=== PATIENT | male | born 1985 | race Caucasian/White ===

== ENCOUNTER 2022-05-02 10:20 | Emergency (ER) | payer OTHER ==
[~2022-05-02] VITALS: Ht 167.6 cm; Wt 70.3 kg
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
--- NOTE | 2022-05-02 10:35 | NUR ---
ESTABLISHED IV LINE LEFT AC 18 G ,
--- NOTE | 2022-05-02 10:45 | NUR ---
BLOOD SAMPLE OBTAINED
--- NOTE | 2022-05-02 10:45 | NUR ---
ON 3L NC, O2SAT AT 98
[2022-05-02 11:00] LABS: EOSINOPHILS % (AUTO) 0.2 % (0.0-6.0); HEMATOCRIT 42 % (39-51); HEMOGLOBIN 13.9 g/dL (13.5-17.5); LYMPHOCYTES # (AUTO) 0.4 K/uL (0.8-4.8); MEAN CORPUSCULAR HGB CONC 33 g/dl (31.0-36.0); MEAN CORPUSCULAR VOLUME 84 fL (80-96); MONOCYTES # (AUTO) 0.2 K/uL (0.1-1.30); MONOCYTES % (AUTO) 1.6 % (2.0-12.0); NEUTROPHILS # (AUTO) 13.6 K/uL (1.8-8.9); NEUTROPHILS % (AUTO) 95.2 % (43.0-81.0); PLATELET COUNT (AUTO) 262 K/uL (150-450); RED BLOOD CELL COUNT(AUTO) 4.97 MIL/uL (4.5-6.0); WHITE BLOOD COUNT (AUTO) 14.3 K/uL (4.3-11.0)
[2022-05-02 11:05] LABS: CALCIUM, SERUM 9.6 mg/dL (8.5-10.1); CARBON DIOXIDE 25 mmol/L (21-32); CHLORIDE 102 mmol/L (98-107); CREATININE 1.3 mg/dL (0.6-1.3); GLUCOSE 109 mg/dL (74-106); POTASSIUM 4.4 mmol/L (3.5-5.1); SODIUM SERUM 137 mmol/L (136-145); UREA NITROGEN, BLOOD 21 mg/dL (7-18)
[2022-05-02 11:08] LABS: ALANINE AMINOTRANSFERASE 27 U/L (12-78); ALBUMIN 3.7 g/dL (3.4-5.0); ALCOHOL, BLOOD < 3 mg/dL (0-0); ALKALINE PHOSPHATASE 75 U/L (46-116); ASPARTATE AMINOTRANSFERASE 20 U/L (15-37); BILIRUBIN,DIRECT 0.3 mg/dL (0.0-0.2); TOTAL PROTEIN, SERUM 7.6 g/dL (6.4-8.2)
--- NOTE | 2022-05-02 11:10 | NUR ---
PATIENT DONT WANT TO BE OBSERVE IN THE EMERGENCY DEPT. AND WISH TO GO HOME. VITAL SIGNS ARE STABLE. ABLE TO AMBULATE AND NO SIGNS OF ANY DISTRESS. MD MADE AWARE.
[2022-05-02 11:21] LABS: ACETAMINOPHEN < 10 ug/ml (10-30)
--- NOTE | 2022-05-02 11:25 | NUR ---
IV removed. Catheter intact and site benign. Pressure and 4x4 applied to site. No bleeding noted.
--- NOTE | 2022-05-02 11:25 | NUR ---
Patient discharged to home in stable condition. Written and verbal after care instructions given. Patient verbalizes understanding of instruction.
[2022-05-02 11:30] VITALS: BP 141/64
[2022-05-03] MEDS ORDERED: FINA1TAB11 PO (15:00)
[2022-05-03] MEDS ORDERED: EMTR1TAB17 PO (15:00)
== END 2022-05-02 11:31 | disposition home or self-care (01) ==
LOC: EDBD → ER 10:26
DX: F15.10 Other stimulant abuse, uncomplicated (principal); F17.200 Nicotine dependence, unspecified, uncomplicated; Z60.2 Problems related to living alone; Z20.822 Contact with and (suspected) exposure to COVID-19
CPT/HCPCS: 99283; 85025; 80048; 87040 ×2; 83605; 80076; 36415; 87426; 80143; 80320; C9803; G0480

== ENCOUNTER 2022-05-03 03:03 | Inpatient (IN) | payer OTHER ==
[~2022-05-03] VITALS: Ht 165.1 cm; Wt 57.2 kg
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
[2022-05-03] MEDS ORDERED: IV NS 0.9% 1,000 ML IV ONE (04:30)
[2022-05-03] MEDS ORDERED: ONDANSETRON HCL/PF 4 MG/2 ML VIAL ONE (04:47)
[2022-05-03] MEDS ORDERED: NALOXONE PREFILLED SYRINGE 2 MG/2 ML SYRINGE ONE ×3 (04:47→08:10)
--- NOTE | 2022-05-03 04:55 | NUR ---
OFFERED PT URINE CUP; AWAITING FOR URINE SAMPLE. WILL F/U
--- NOTE | 2022-05-03 04:55 | NUR ---
LAC #18G S/L BLOOD COLLECTED AND SENT TO LAB.
[2022-05-03] MEDS ORDERED: NALOXONE HCL 0.4 MG/ML AMPUL IV ONE ×5 (05:00→12:30)
[2022-05-03] MEDS ORDERED: ONDANSETRON HCL/PF 4 MG/2 ML VIAL IV ONE (05:00)
--- NOTE | 2022-05-03 05:35 | NUR ---
PT FREQUENTLY REFUSING TO PROVIDE URINE SAMPLE AND TO GET CATHETERIZED.
[2022-05-03 06:02] LABS: CALCIUM, SERUM 8.9 mg/dL (8.5-10.1); CARBON DIOXIDE 27 mmol/L (21-32); CHLORIDE 95 mmol/L (98-107); CREATININE 1.7 mg/dL (0.6-1.3); GLUCOSE 114 mg/dL (74-106); POTASSIUM 4.5 mmol/L (3.5-5.1); SODIUM SERUM 133 mmol/L (136-145); UREA NITROGEN, BLOOD 32 mg/dL (7-18)
[2022-05-03 06:06] LABS: HEMATOCRIT 42 % (39-51); HEMOGLOBIN 14.2 g/dL (13.5-17.5); LYMPHOCYTES # (AUTO) 0.8 K/uL (0.8-4.8); LYMPHOCYTES % (AUTO) 3.9 % (20.0-44.0); MEAN CORPUSCULAR HGB CONC 34 g/dl (31.0-36.0); MEAN CORPUSCULAR VOLUME 85 fL (80-96); MONOCYTES # (AUTO) 0.4 K/uL (0.1-1.30); MONOCYTES % (AUTO) 1.7 % (2.0-12.0); NEUTROPHILS # (AUTO) 20.2 K/uL (1.8-8.9); NEUTROPHILS % (AUTO) 94.4 % (43.0-81.0); PLATELET COUNT (AUTO) 241 K/uL (150-450); WHITE BLOOD COUNT (AUTO) 21.4 K/uL (4.3-11.0)
[2022-05-03 06:07] LABS: ALANINE AMINOTRANSFERASE 33 U/L (12-78); ALBUMIN 3.3 g/dL (3.4-5.0); ALCOHOL, BLOOD < 3 mg/dL (0-0); ALKALINE PHOSPHATASE 58 U/L (46-116); ASPARTATE AMINOTRANSFERASE 56 U/L (15-37); BILIRUBIN,DIRECT 0.4 mg/dL (0.0-0.2); BILIRUBIN,TOTAL 1.8 mg/dL (0.2-1.0); TOTAL PROTEIN, SERUM 7.5 g/dL (6.4-8.2)
--- NOTE | 2022-05-03 06:28 | NUR ---
LACTIC ACID 3.3; DR LAW DANIELLE AWARE
[2022-05-03] MEDS ORDERED: VANCOMYCIN 1 GM VIAL ONE (06:38)
--- NOTE | 2022-05-03 06:50 | NUR ---
COVID ANTIGEN COLLECTED AND SENT TO LAB
--- NOTE | 2022-05-03 06:52 | NUR ---
CALLED PHARMACY FOR CEPHIPINE
[2022-05-03] MEDS ORDERED: VANCOMYCIN 1 GM in IV D5W 250 ML IV ONE (07:00)
[2022-05-03] MEDS ORDERED: IV NS 0.9% 1,000 ML BAG IV ONE (07:00)
[2022-05-03] MEDS ORDERED: CEFEPIME 1 GM in IV D5W 50 ML IV ONE (07:00)
--- NOTE | 2022-05-03 07:28 | NUR ---
RECEIVED CALL FROM MATT AT [facility], REQUESTING CLINICALS TO BE FAXED TO [phone]
--- NOTE | 2022-05-03 08:14 | NUR ---
quality assurance lab technician at bedside, patient cleared for CT per
[2022-05-03] MEDS ORDERED: IV NS 0.9% 250 ML IV ONE (08:22)
[2022-05-03] MEDS ORDERED: IOHEXOL-300 100 ML VIAL IV ONE (08:22)
--- NOTE | 2022-05-03 08:37 | NUR ---
FAXED UPDATED CLINICALS TO MATT AT [facility] [phone]
--- NOTE | 2022-05-03 08:42 | NUR ---
ROOM 120-2
--- NOTE | 2022-05-03 08:47 | NUR ---
REPORT GIVEN TO HELDER GEIGER
--- NOTE | 2022-05-03 08:57 | NUR ---
HOSPITALIST SPEAKING WITH DR. MONTES.
--- NOTE | 2022-05-03 10:51 | NUR ---
PT TRANSFERRED TO TELE FLOOR WITH ACLS PROTOCOLS IN PLACE
[2022-05-03] MEDS ORDERED: MAG HYDROX/AL HYDROX/SIMETH 30 ML UDC PO PRN (11:00)
[2022-05-03] MEDS ORDERED: MAGNESIUM HYDROXIDE 30 ML UDC PO PRN (11:00)
[2022-05-03] MEDS ORDERED: LORAZEPAM INJ 2 MG/ML VIAL IV PRN (11:00)
[2022-05-03] MEDS ORDERED: TEMAZEPAM 15 MG CAPSULE PO PRN (11:00)
[2022-05-03] MEDS ORDERED: Z GUARD REMEDY 4 OZ OINT TP PRN (11:00)
[2022-05-03] MEDS: PANTOPRAZOLE 40 MG TABLET.DR PO SCH (11:23)
[2022-05-03] MEDS: AZITHROMYCIN 250 MG TABLET PO SCH (11:24)
[2022-05-03] MEDS: IV NS 0.9% 1,000 ML IV PRN ×2 (11:26→22:46)
--- NOTE | 2022-05-03 11:30 | NUR ---
FOLDED CLOTH TAPER NOTES Receuived pt from ER AOx3. No complaints of pain or discomfort at this time. Pt is on 2L NC and tolerating it well. IV access on LAC 18G running IVF NS @100cc/hr. HOB elevated to 30-45 degrees. Siderails up at all times x2. Call light within reach. Will continue to monitor.
--- NOTE | 2022-05-03 11:45 | NUR ---
EDUCATION DIRECTOR NOTES Pt temperature 101.8 degrees Fahrenheit. Offered cooling measures but pt refused. Pt stated he just needs to cool off by himself.
[2022-05-03] MEDS: CEFTRIAXONE 2 G in IV D5W 100 ML IV SCH (11:48)
[2022-05-03 11:56] VITALS: BP 152/66
--- NOTE | 2022-05-03 12:30 | NUR ---
PRODUCT SUPPORT REP NOTES Pt is asleep in bed and arousable. Unable to keep a conversation. Dr. Myles at bedside with new order for Narcan 0.4mg IVP x2 now. Noted and carried out.
--- NOTE | 2022-05-03 12:45 | NUR ---
WORM GROWER NOTES Pt transferred from Med surge to TOBIAS status. Moved from bed 120-2 to 105 for better observation. Pt is current asleep in bed.
--- NOTE | 2022-05-03 13:32 | NUR ---
PACKING FLOOR WORKER NOTES Lab called to relay critical lab Procalcitonin 34.68. Anand, INTELLIGENCE OPERATIONS SPECIALIST notified with no new orders at this time.
--- NOTE | 2022-05-03 14:40 | NUR ---
SWITCHMAN NOTES Pt is asleep in bed and arousable. Respirations are 24, HR 120 Sinus tach, temperature 101.4 degrees Fahrenheit. Offer Tylenol and cooling measure but pt refused. Explained risks and benefits but still refused.
[2022-05-03] MEDS ORDERED: EMTR1TAB17 PO (15:00)
[2022-05-03] MEDS ORDERED: FINA1TAB11 PO (15:00)
[2022-05-03 16:00] VITALS: BP 98/62
[2022-05-03] MEDS ORDERED: HYDROCODONE/APAP 5/325MG TABLET PO PRN (17:45)
--- NOTE | 2022-05-03 18:28 | NUR ---
BURR PICKER CLOSING NOTES All due meds and tx given as ordered. Pt tolerated everything well. All needs attended to. Pt is still on 2L NC and tolerating it well. IV access on LAC 18G patent and intact. Call light within reach. Will endorse to oncoming nurse.
[2022-05-03 18:51] LABS: CREATININE, URINE 56.2 MG/DL (30.0-125.0)
[2022-05-03 18:57] LABS: BILIRUBIN,URINE NEGATIVE (NEGATIVE); COLOR,URINE YELLOW (YELLOW); LEUKOCYTE ESTERASE ,URINE NEGATIVE (NEGATIVE); NITRITE, URINE NEGATIVE (NEGATIVE); PH,URINE 6.5 (5.0-8.0); PROTEIN,URINE NEGATIVE (NEGATIVE); UGLUCOSE NEGATIVE (NEGATIVE)
--- NOTE | 2022-05-03 19:05 | NUR ---
RN OPENING NOTES RECEIVED PATIENT IN BED, ASLEEP, BUT EASY TO AROUSE, AAO X3, O2 VIA NC AT 2L, TOLERATING WELL, NO SOB/DISTRESS NOTED. ON TELE MONITOR SHOWING SINUS TACHYCARDIA, HR 111. IV ACCESS ON LEFT AC #18G INFUSING NS AT 100 ML/HR. BUE AND BLE NON-PITTING EDEMA NOTED. SAFETY MEASURES IN PLACE: BED LOCKED AND IN LOWEST POSITION, BED ALARM ON, CALL LIGHT WITHIN REACH, SIDE RAILS UP X2.
[2022-05-03 19:28] LABS: RBC,URINE 0-2 /HPF (0-2); SQUAMOUS EPITHELIAL CELL,UR Rare /HPF (None Seen); WBC,URINE 0-2 /HPF (0-3)
[2022-05-03 19:29] LABS: BACTERIA,URINE Rare /HPF (None Seen)
[2022-05-03 20:00] VITALS: BP 100/54
[2022-05-03] MEDS: VANCOMYCIN 0.75 GM in IV D5W 250 ML IV SCH (20:15)
[2022-05-03] MEDS ORDERED: CEFEPIME 2 GM in IV D5W 100 ML IV SCH (21:00)
[2022-05-03] MEDS: ACETAMINOPHEN 325 MG TABLET PO PRN (21:13)
--- NOTE | 2022-05-03 21:15 | NUR ---
RN NOTE PATIENT COMPLAINS OF PAIN AND TEMPERATURE IS 100.3, TYLENOL 650 GIVEN.
[2022-05-04] VITALS: BP 99/58
[2022-05-04 04:00] VITALS: BP 111/63
--- NOTE | 2022-05-04 06:53 | NUR ---
RN CLOSING NOTES PATIENT IN BED, AWAKE, AAO X3-4, O2 VIA NC AT 2L, TOLERATING WELL, NO SOB/DISTRESS NOTED. ON TELE MONITOR SHOWING SINUS TACHYCARDIA, HR 107. IV ACCESS ON LEFT AC #18G INFUSING NS AT 100 ML/HR. NO S/SX OF INFILTRATION. BUE AND BLE NON-PITTING EDEMA NOTED. ALL DUE MEDS WERE GIVEN AND NEEDS ATTENDED. SAFETY MEASURES MAINTAINED: BED LOCKED AND IN LOWEST POSITION, BED ALARM ON, CALL LIGHT WITHIN REACH, SIDE RAILS UP X2. WILL ENDORSE TO AM NURSE FOR JACKI.
[2022-05-04 07:08] LABS: BASOPHILS # (AUTO) 0.1 K/uL (0.0-0.2); BASOPHILS % (AUTO) 0.4 % (0.0-2.0); HEMATOCRIT 35 % (39-51); HEMOGLOBIN 11.8 g/dL (13.5-17.5); LYMPHOCYTES # (AUTO) 0.7 K/uL (0.8-4.8); LYMPHOCYTES % (AUTO) 4.8 % (20.0-44.0); MEAN CORPUSCULAR HGB CONC 34 g/dl (31.0-36.0); MEAN CORPUSCULAR VOLUME 85 fL (80-96); MONOCYTES # (AUTO) 0.4 K/uL (0.1-1.30); MONOCYTES % (AUTO) 2.6 % (2.0-12.0); NEUTROPHILS # (AUTO) 14.3 K/uL (1.8-8.9); NEUTROPHILS % (AUTO) 91.2 % (43.0-81.0); PLATELET COUNT (AUTO) 203 K/uL (150-450); RED BLOOD CELL COUNT(AUTO) 4.17 MIL/uL (4.5-6.0); WHITE BLOOD COUNT (AUTO) 15.7 K/uL (4.3-11.0)
[2022-05-04 07:14] LABS: CALCIUM, SERUM 8.4 mg/dL (8.5-10.1); MAGNESIUM 2.1 mg/dL (1.8-2.4); POTASSIUM 4.2 mmol/L (3.5-5.1)
[2022-05-04] MEDS: PANTOPRAZOLE 40 MG TABLET.DR PO SCH (07:52)
[2022-05-04 08:00] VITALS: BP 109/72
[2022-05-04] MEDS: VANCOMYCIN 0.75 GM in IV D5W 250 ML IV SCH ×2 (08:14→16:13)
[2022-05-04] MEDS ORDERED: NEUTRA PHOS 1 POWD.PACKET PO ONE (08:30)
[2022-05-04] MEDS: NEUTRA PHOS 1 POWD.PACKET PO SCH ×2 (09:33→16:14)
--- NOTE | 2022-05-04 09:38 | NUR ---
SIGNAL OPERATOR LINGUIST/MED RECON UNABLE TO UPDATE COMPLETE HOME MEDICATION INFORMATION. PER PATIENT YESTERDAY, PATIENT WAS ON HIV/AIDS MEDICATION 2-3 MONTHS AGO. TODAY, I WAS CALLED BY CN TO UPDATE MED-RECON. SPOKE WITH PATIENT AT BEDSIDE. DENIED TAKING ANY MEDICATION AT ALL. MING COUGHLIN AT BEDSIDE AWARE. DR. REYES MADE AWARE.
--- NOTE | 2022-05-04 12:00 | NUR ---
MACHINE TAPER IS WORKING ON PATIENT'S IDENTITY
[2022-05-04] MEDS: CEFTRIAXONE 2 G in IV D5W 100 ML IV SCH (12:31)
[2022-05-04] MEDS: AZITHROMYCIN 250 MG TABLET PO SCH (12:32)
[2022-05-04] MEDS: HYDROCODONE/APAP 5/325MG TABLET PO PRN ×2 (12:33→18:56)
--- NOTE | 2022-05-04 13:15 | NUR ---
PATIENT'S MOM CALLED AND ASKED ABOUT PATIENT'S OVERAL CONDITION AND DIAGNOSIS, EVERYTHING WAS EXPLAINED.
[2022-05-04 16:00] VITALS: BP 98/63
[2022-05-04] MEDS: IV NS 0.9% 1,000 ML IV PRN (16:40)
--- NOTE | 2022-05-04 18:12 | NUR ---
PATIENT'S SISTER KEE FOR EMERGENCY CONTACT PATIENT'S MOTHER SHANNAN
--- NOTE | 2022-05-04 18:30 | NUR ---
LEFT AC g#18 INFILTRATED, I TRIED A NEW ONE ON RIGHT ARM WAS NOT SUCCESSFUL, ENDORSED IT TO THE INFUSION PHARMACIST NURSE TO DI IT.
--- NOTE | 2022-05-04 18:55 | NUR ---
RN CLOSING NOTES PATIENT IN BED, AWAKE, ALERT AND ORIENTED X4, O2 VIA NC AT 2L, TOLERATING WELL, NO SOB/DISTRESS NOTED. PATIENT NO MORE TOBIAS PATIENT HE IS MED SURG SINCE TODAY NOON, HR 97. IV ACCESS ON LEFT AC #18G INFILTRATED INDORSED TO THE TAB CARD PRESS OPERATOR NURSE TO APPLY A NEW ONE, I APPLIED ONCE AND WAS NOT SUCCESSFUL. BUE AND BLE NON-PITTING EDEMA NOTED. ALL DUE MEDS WERE GIVEN AND NEEDS ATTENDED. SAFETY MEASURES MAINTAINED: BED LOCKED AND IN LOWEST POSITION, BED ALARM ON, CALL LIGHT WITHIN REACH, SIDE RAILS UP X2. WILL ENDORSE TO THE TAB CARD PRESS OPERATOR NURSE FOR JACKI.
[2022-05-04 20:00] VITALS: BP 107/69
--- NOTE | 2022-05-04 20:03 | NUR ---
MS RN OPENING NOTES: RECEIVED PATIENT AWAKE IN BED, BED IN LOW POSITION, CALL LIGHTS WITHIN REACH, NO COMPLAIN OF PAIN AND DISCOMFORT AT THIS TIME, ON O2 INHALATION AT 3LPM SATURATING WELL, PATIENT IS A/OX4 ABLE TO MAKE NEEDS KNOWN, PATIENT KEPT CLEAN AND DRY ALL NEEDS MET WILL CONTINUE TO MONITOR.
[2022-05-05] VITALS: BP 96/60
[2022-05-05] MEDS: VANCOMYCIN 0.75 GM in IV D5W 250 ML IV SCH ×4 (00:21→23:33)
[2022-05-05] MEDS: ACETAMINOPHEN 325 MG TABLET PO PRN (00:29)
[2022-05-05 04:00] VITALS: BP 90/59
--- NOTE | 2022-05-05 06:39 | NUR ---
MS RN CLOSING NOTES: PATIENT SLEEP IN BED COMFORTABLY, AROUSABLE TO VERBAL STIMULI, BED IN LOW POSITION CALL LIGHTS WITHIN REACH, NO COMPLAIN OF PAIN AND DISCOMFORT AT THIS TIME, ON ROOM AIR SATURATING WELL, NO SOB WAS OBSERVED, ON O2 INHALATION AT 2LPM TO ROOM AIR SATURATING WELL, IV LINE AT [facility] #22 WITH ONGOING 0.9NSS@100ML/HR INFUSING WELL,PATIENT KEPT CLEAN AND DRY ALL NEEDS MET ENDORSE TO INCOMING NURSE.
[2022-05-05 06:51] LABS: CALCIUM, SERUM 8.9 mg/dL (8.5-10.1); POTASSIUM 4.1 mmol/L (3.5-5.1)
--- NOTE | 2022-05-05 07:20 | NUR ---
MS RN OPENING NOTES: RECEIVED PATIENT AWAKE IN BED, BED IN LOW POSITION, CALL LIGHTS WITHIN REACH, NCOMPLAIN OF PAIN AND DISCOMFORT OF ALL BODY 11/22 , ON O2 INHALATION AT 3LPM SATURATING WELL, PATIENT IS A/OX4 ABLE TO MAKE NEEDS KNOWN, PATIENT KEPT CLEAN AND DRY ALL NEEDS MET WILL CONTINUE TO MONITOR.
[2022-05-05] MEDS: HYDROCODONE/APAP 5/325MG TABLET PO PRN (07:46)
[2022-05-05] MEDS: PANTOPRAZOLE 40 MG TABLET.DR PO SCH (07:46)
[2022-05-05 08:00] VITALS: BP 100/62
--- NOTE | 2022-05-05 10:00 | NUR ---
SS note: SS consult requested for possible homelessness and drug use. SW met with pt. at bedside the pt. is alert & oriented x 4 and pt.'s mother, Amena Quinteros tel: [phone] was at bedside. Pt. asked that SW return at a later time. SW will follow up later.
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
[2022-05-05] MEDS: CEFTRIAXONE 2 G in IV D5W 100 ML IV SCH (11:01)
[2022-05-05] MEDS: AZITHROMYCIN 250 MG TABLET PO SCH (11:16)
[2022-05-05] MEDS ORDERED: VALACYCLOVIR HCL 500 MG TABLET PO SCH (11:30)
[2022-05-05] MEDS ORDERED: HYDROCODONE/APAP 10/325MG TABLET PO PRN (12:00)
[2022-05-05] MEDS ORDERED: HYDROCODONE/APAP 5/325MG TABLET PO PRN (12:00)
--- NOTE | 2022-05-05 12:07 | NUR ---
SS Note: SW was notified that [employer] officers have arrives at 1130. SW met with them in hospital lobby and addressed their questions. Officers Melonie#[id number], and officer Addison#[id number]. Per PD, they may return tomorrow to see pt. and will not see him today.
[2022-05-05] MEDS: ACYCLOVIR 200 MG CAPSULE PO SCH ×2 (13:10→17:02)
--- NOTE | 2022-05-05 13:36 | NUR ---
SS NOTE: [employer] requested to be called (to [email or web address] Supervisor [phone]) 2 hours prior to discharging the pt. SW notified charge nurseEvens.
[2022-05-05] MEDS: IV NS 0.9% 1,000 ML IV PRN (14:12)
[2022-05-05] MEDS: ONDANSETRON HCL/PF 4 MG/2 ML VIAL IVP PRN ×2 (14:15→22:56)
--- NOTE | 2022-05-05 19:35 | NUR ---
MS RN OPENING NOTE RECEIVED PT RESTING IN BED, VERBALLY RESPONSIVE. A/O X3-4 AND ABLE TO MAKE NEEDS KNOWN. PT ON ROOM AIR, TOLERATING WELL. NO SOB OR S/S OF RESPIRATORY DISTRESS. BREATHING EVEN AND UNLABORED. IV ACCESS L HAND 22G, INTACT AND PATENT. SAFETY PRECAUTIONS IN PLACE. BED IN LOWEST LOCKED POSITION, HOB ELEVATED, SIDE RAILS UP X2, AND CALL LIGHT AND TABLE WITHIN REACH. ALL NEEDS MET AT THIS TIME.
[2022-05-05] MEDS ORDERED: GABAPENTIN 300 MG CAPSULE PO SCH (22:00)
--- NOTE | 2022-05-05 22:57 | NUR ---
RN NOTE PT COMPLAINED OF NAUSEA, NO EMESIS PRESENT. ADMINISTERED ZOFRAN 4 MG FOR NAUSEA ORDERED. MADE COMFORTABLE IN BED. ALL NEEDS MET AT THIS TIME.
[2022-05-06] MEDS: IV NS 0.9% 1,000 ML IV PRN (05:00)
--- NOTE | 2022-05-06 06:35 | NUR ---
MS RN CLOSING NOTE PT RESTING IN BED, VERBALLY RESPONSIVE. A/O X3-4 AND ABLE TO MAKE NEEDS KNOWN. PT ON ROOM AIR, TOLERATING WELL. NO SOB OR S/S OF RESPIRATORY DISTRESS. BREATHING EVEN AND UNLABORED. IV ACCESS L HAND 22G, INTACT AND PATENT, RUNNING NS @ 100 ML/HR. ALL DUE MEDS GIVEN ORDERED. SAFETY PRECAUTIONS IN PLACE AT ALL TIMES. BED IN LOWEST LOCKED POSITION, HOB ELEVATED, SIDE RAILS UP X2, AND CALL LIGHT AND TABLE WITHIN REACH. ALL NEEDS MET AT THIS TIME AND WILL ENDORSE TO ONCOMING NURSE FOR JACKI.
[2022-05-06 06:36] LABS: BASOPHILS % (AUTO) 0.5 % (0.0-2.0); HEMATOCRIT 38 % (39-51); HEMOGLOBIN 12.8 g/dL (13.5-17.5); LYMPHOCYTES # (AUTO) 1.1 K/uL (0.8-4.8); LYMPHOCYTES % (AUTO) 17.1 % (20.0-44.0); MEAN CORPUSCULAR HGB CONC 34 g/dl (31.0-36.0); MEAN CORPUSCULAR VOLUME 85 fL (80-96); MONOCYTES # (AUTO) 0.6 K/uL (0.1-1.30); MONOCYTES % (AUTO) 8.6 % (2.0-12.0); NEUTROPHILS # (AUTO) 4.7 K/uL (1.8-8.9); NEUTROPHILS % (AUTO) 71.8 % (43.0-81.0); PLATELET COUNT (AUTO) 288 K/uL (150-450); RED BLOOD CELL COUNT(AUTO) 4.52 MIL/uL (4.5-6.0); WHITE BLOOD COUNT (AUTO) 6.6 K/uL (4.3-11.0)
[2022-05-06 07:05] LABS: CALCIUM, SERUM 9.1 mg/dL (8.5-10.1); CREATININE 0.9 mg/dL (0.6-1.3); POTASSIUM 4.1 mmol/L (3.5-5.1)
[2022-05-06] MEDS: VANCOMYCIN 0.75 GM in IV D5W 250 ML IV SCH ×3 (07:09→15:38)
[2022-05-06] MEDS: PANTOPRAZOLE 40 MG TABLET.DR PO SCH (07:31)
[2022-05-06] MEDS: ACYCLOVIR 200 MG CAPSULE PO SCH ×2 (08:39→12:24)
[2022-05-06] MEDS: AZITHROMYCIN 250 MG TABLET PO SCH (12:21)
[2022-05-06] MEDS: CEFTRIAXONE 2 G in IV D5W 100 ML IV SCH (12:24)
--- NOTE | 2022-05-06 14:48 | NUR ---
iv out ,refused to be reinserted, notified.
--- NOTE | 2022-05-06 15:39 | NUR ---
VANCOMYCIN NOT GIVEN DUE TO NO IV LINE AT THIS TIME, CHARGE NURSE IS AWARE.
--- NOTE | 2022-05-06 16:16 | NUR ---
INFORMED ZARINA HUNT AND SPOKE TO [facility] [id number] PRIOR FROM DISCHARGE PER ENGRAVER PICTURE NOTE. CHARGE AWARE.
--- NOTE | 2022-05-06 17:11 | NUR ---
PATIENT LEFT ABSENT WITHOUT LEAVE, NURSING SENIOR ENERGY ANALYST AND CHARGE NURSE INFORMED. NO IV LINE. [employer] INFORMED WELL.
== END 2022-05-06 17:10 | disposition left against medical advice (07) | DRG 720 ==
LOC: ER 03:04 → MEDSG1 08:41 → EDBD 08:41 → MEDSG1 10:20 → TELE1 10:51 → TELE-TD 12:25 → TELE1 05-04 08:34 → MEDSG1 05-04 09:12
PROVIDERS: ADMIT Nurse Practitioner Acute Care; ATTEND Nurse Practitioner Acute Care
DX: A41.9 Sepsis, unspecified organism (principal); J96.01 Acute respiratory failure with hypoxia; N17.0 Acute kidney failure with tubular necrosis; E87.20 Acidosis, unspecified; J15.9 Unspecified bacterial pneumonia; M62.82 Rhabdomyolysis; E87.1 Hypo-osmolality and hyponatremia; E88.09 Other disorders of plasma-protein metabolism, not elsewhere classified; J90 Pleural effusion, not elsewhere classified; E86.1 Hypovolemia; Z20.822 Contact with and (suspected) exposure to COVID-19; Z59.00 Homelessness unspecified; F19.10 Other psychoactive substance abuse, uncomplicated; E80.6 Other disorders of bilirubin metabolism; K82.8 Other specified diseases of gallbladder; B19.20 Unspecified viral hepatitis C without hepatic coma; F17.200 Nicotine dependence, unspecified, uncomplicated; Z87.19 Personal history of other diseases of the digestive system; G89.4 Chronic pain syndrome; F41.9 Anxiety disorder, unspecified; J98.11 Atelectasis
CPT/HCPCS: 36415; 71045-TC; 73030-TC; 76700-TC; 80048-TC; 80076-TC; 80202-TC; 81001; 82550-TC; 82553; 82570-TC; 83605-TC; 83735-TC; 84100-TC; 84300-TC; 84484-TC; 85025-TC; 86704; 86803; 87040-TC; 87081-TC; 87340; 87806; 93307-TC; A4223; G0378; G0480; J0692; J0696; J2310; J2405; J3370; J7030; J7050; J7060; Q9967

== ENCOUNTER 2022-11-23 01:12 | Emergency (ER) | payer OTHER ==
[~2022-11-23] VITALS: Ht 160 cm; Wt 66.2 kg
[2022-11-23 03:07] VITALS: BP 114/81; TEMP 97.9
[2022-11-23 04:03] VITALS: O2SAT 94
== END 2022-11-23 04:04 | disposition home or self-care (01) ==
LOC: ER 01:21
DX: L02.414 Cutaneous abscess of left upper limb (principal); F17.200 Nicotine dependence, unspecified, uncomplicated; Z60.2 Problems related to living alone

== ENCOUNTER 2022-12-30 20:57 | Emergency (ER) | payer OTHER ==
[~2022-12-30] VITALS: Ht 160 cm; Wt 65.8 kg
[2022-12-30] MEDS ORDERED: KETOROLAC TROMETHAMINE INJ 30 MG/ML VIAL IM ONE (22:30)
[2022-12-30] MEDS ORDERED: KETOROLAC TROMETHAMINE INJ 30 MG/ML VIAL ONE (22:32)
[2022-12-30] MEDS ORDERED: IBUP-1955 PO (23:55)
[2022-12-30] MEDS ORDERED: ACET-868 PO (23:55)
[2022-12-31 00:25] VITALS: BP 128/63; TEMP 98.1; O2SAT 100
== END 2022-12-31 00:27 | disposition home or self-care (01) ==
LOC: ER 20:59
DX: S80.812A Abrasion, left lower leg, initial encounter (principal); M25.572 Pain in left ankle and joints of left foot; E11.9 Type 2 diabetes mellitus without complications; F17.200 Nicotine dependence, unspecified, uncomplicated; Z60.2 Problems related to living alone; V23.49XA Other motorcycle driver injured in collision with car, pick-up truck or van in traffic accident, initial encounter; Y93.89 Activity, other specified; Y92.89 Other specified places as the place of occurrence of the external cause; Y99.8 Other external cause status
CPT/HCPCS: 99284; 96372; 73610; 73552; 73564; 73590; J1885; J7040

== ENCOUNTER 2023-01-05 21:17 | Emergency (ER) | payer OTHER ==
[~2023-01-05] VITALS: Ht 160 cm; Wt 65.8 kg
[~2023-01-05 21:17] MED LIST: ACET-868 PO; IBUP-1955 PO
[2023-01-05] MEDS ORDERED: KETOROLAC TROMETHAMINE INJ 60 MG/2 ML VIAL IM ONE (23:44)
[2023-01-05 23:57] VITALS: BP 129/79; TEMP 97.9; O2SAT 99
[2023-01-06] MEDS ORDERED: KETOROLAC TROMETHAMINE INJ 60 MG/2 ML VIAL IM ONE
== END 2023-01-06 00:10 | disposition home or self-care (01) ==
LOC: ER 21:23
DX: S93.402A Sprain of unspecified ligament of left ankle, initial encounter (principal); E11.9 Type 2 diabetes mellitus without complications; F17.200 Nicotine dependence, unspecified, uncomplicated; Z60.2 Problems related to living alone; V09.9XXA Pedestrian injured in unspecified transport accident, initial encounter; Y93.89 Activity, other specified; Y92.89 Other specified places as the place of occurrence of the external cause; Y99.8 Other external cause status
CPT/HCPCS: 99283; 96372; J1885

== ENCOUNTER 2023-01-24 02:37 | Emergency (ER) | payer OTHER ==
[~2023-01-24] VITALS: Ht 165.1 cm; Wt 64.0 kg
[2023-01-24 03:51] VITALS: BP 136/80; TEMP 97.9; O2SAT 99
[2023-01-24] MEDS ORDERED: SULF1TAB48 PO (04:19)
[2023-01-24] MEDS ORDERED: ACETAMINOPHEN ES 500 MG TABLET ONE (04:28)
[2023-01-24] MEDS ORDERED: SULFAMETH/TRIMETH 800/160 MG 1 UDTAB TABLET ONE (04:29)
[2023-01-24] MEDS ORDERED: SULFAMETH/TRIMETH 800/160 MG 1 UDTAB TABLET PO ONE (04:30)
[2023-01-24] MEDS ORDERED: ACETAMINOPHEN ES 500 MG TABLET PO ONE (04:30)
== END 2023-01-24 04:41 | disposition home or self-care (01) ==
LOC: ER 02:37
DX: L03.113 Cellulitis of right upper limb (principal); E11.9 Type 2 diabetes mellitus without complications; F17.200 Nicotine dependence, unspecified, uncomplicated; Z79.899 Other long term (current) drug therapy; Z60.2 Problems related to living alone
CPT/HCPCS: 82962-TC

== ENCOUNTER 2023-04-18 21:47 | Emergency (ER) | payer OTHER ==
[~2023-04-18] VITALS: Ht 157.5 cm; Wt 66.2 kg
[~2023-04-18 21:47] MED LIST changes: +SULF1TAB48 PO
[2023-04-18 21:52] VITALS: BP 103/85; TEMP 98; O2SAT 99
[2023-04-18] MEDS ORDERED: DILTIAZEM HCL 50 MG IV IV ONE (22:30)
== END 2023-04-18 22:26 | disposition left against medical advice (07) ==
LOC: ER 21:48
DX: R07.89 Other chest pain (principal); E11.9 Type 2 diabetes mellitus without complications; Z60.2 Problems related to living alone; Z53.21 Procedure and treatment not carried out due to patient leaving prior to being seen by health care provider